=== PATIENT | male | born 1980 | race Caucasian/White ===

== ENCOUNTER → 2016-12-12 | Outpatient (CLI) | payer BC ==
[~2016-12-12] MED LIST: EFFEXOR XR75 MG/CAP PO; REMERON30 MG PO
== END ==
LOC: BHSO 15:14
DX: F31.81 Bipolar II disorder (principal)

== ENCOUNTER → 2017-08-07 | Outpatient (CLI) | payer BC | LOC: BHSO 15:11 | DX: F41.1 Generalized anxiety disorder (principal) ==

== ENCOUNTER → 2018-01-01 | Outpatient (CLI) | payer BC | LOC: BHSO 15:16 | DX: F41.1 Generalized anxiety disorder (principal) | CPT/HCPCS: G0463 ==